=== PATIENT | female | born 1980 | race Two or more races ===

== ENCOUNTER → 2021-07-15 | Outpatient (REF) | LOC: M LABSMTC 11:37 | PROVIDERS: ATTEND Family Medicine | DX: Z11.52 Encounter for screening for COVID-19 (principal) ==

== ENCOUNTER → 2022-05-25 | Outpatient (REF) | LOC: M LABSMTC 11:42 | PROVIDERS: ATTEND Family Medicine | DX: Z11.52 Encounter for screening for COVID-19 (principal) ==